=== PATIENT | female | born 1955 | race Caucasian/White ===

== ENCOUNTER 2020-04-12 07:40 | Emergency (ER) | payer MEDICARE, SELFPAY ==
[2020-04-12 07:44] VITALS: BP 194/82; PULSE 75; RESP 16; TEMP 36.6; O2SAT 94; BMI 40.7
--- NOTE | 2020-04-12 08:13 | W.ED.EXTPRO ---
HPI - Extremity Problem General: Chief complaint: Extremity Problem,Nontraumatic Stated complaint: R wrist pain/swelling Time Seen by Provider: 04/12/20 07:58 History of Present Illness: HPI Narrative: 64-year-old female patient presents to the emergency department with onset of right wrist plane that started yesterday. Pain is worsened over the past 24 hours. She denies injury, fall or other trauma. She denies open wounds to the area. 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 She is right-hand dominant. Pain with opening closure of the hand and movement of the wrist. MD Complaint: extremity pain Associated symptoms: Deny chest pain, fever(s) or rash Review of Systems General: Reports: 10 or more systems reviewed and unremarkable except in HPI and below Const: Denies: fever(s), chills or diaphoresis Card: Denies: chest pain, palpitations or irregular heart rhythm Resp: Denies: dyspnea, productive cough, non-productive cough or wheezing Musc: Reports: joint pain (Right wrist) and joint stiffness (Right wrist); Denies: back pain Skin/Breast: Denies: rash or pruritus Neuro: Denies: headache(s), weakness in extremities or behavioral changes PFS ED PFSH: Social History (Updated 04/12/20 @ 07:50 by Isiah Mesa RN) Smoking and tobacco status: never smoked Alcohol intake: never Substance/Drug Use: never Physical Exam Const: COMMON NORMALS: no acute distress, patient oriented x3, healthy appearing and alert GENERAL APPEARANCE: cooperative and well hydrated Neck/C-Spine: COMMON NORMALS: full ROM and no lymphadenopathy GENERAL: Yes normal visual inspection and Yes trachea midline CERVICAL SPINE: Yes cervical ROM normal Chest: COMMONS NORMALS: normal inspection of the chest Resp: COMMON NORMALS: normal respiratory effort and clear to auscultation bilaterally AUSCULTATION: clear to auscultation bilaterally Cardio: COMMON NORMALS: regular rhythm, S1 normal heart sound present and S2 normal heart sound present RHYTHM: regular rhythm HEART SOUNDS: S1 normal heart sound present and S2 normal heart sound present Back/Pelvis: COMMON NORMALS: thoracic and lumbar spine normal to inspection Extremity: COMMON NORMALS: normal to inspection and capillary refill normal NARRATIVE EXTREMITY EXAM: Radial pulse bilateral 2+ GENERAL: Yes normal exam except as noted RIGHT UPPER EXTREMITY: Yes wrist Right wrist: Yes inspection, Yes palpation (Pain to the anterior radial and ulnar side of the wrist, reproduced with palpation), Yes ROM (Limited, positive Phalen positive Tinel sign, n/v exam distally intact) and Yes neurovascular exam OTHER: Flexion extension of the digits to the right upper extremity reproduce pain to the right wrist, movement of the digits appreciated. Hand grasp reproduces pain to the right wrist. Patient did have brace on that was too tight, edema to the dorsal part of the hand noted, swelling resolved when brace was removed. No erythema, increased warmth to the hand or wrist/forearm. Negative swelling of the right wrist/right FA. Rt Elbow and upper arm w/o abnormality Neuro: COMMON NORMALS: patient oriented x3 and no focal motor deficits SENSORIUM/ORIENTATION: Yes alert Psych: COMMON NORMALS: mental status grossly normal, Normal thought process present and cooperative ACTIVITY/MOTOR BEHAVIOR: Yes appropriate eye contact THOUGHT PROCESS: Normal thought process present Skin: COMMON NORMALS: no rashes or lesions noted and turgor normal GENERAL SKIN EXAM: no rashes or lesions noted and turgor normal Course Vital Signs: Vital signs: Vital Signs Temperature 97.9 F 04/12/20 07:44 Pulse Rate 72 04/12/20 08:35 Respiratory Rate 18 04/12/20 08:35 Blood Pressure 194/82 04/12/20 07:44 Pulse Oximetry 96 04/12/20 08:35 MDM - Extremity (Nontraumatic) MDM Narrative: Medical decision making narrative: differential includes tenosynovitis Differential Diagnosis: Extremity Problem Differential Diagnosis: Likely cellulitis, superficial thrombophlebitis and deep venous thrombosis of upper extremity Discharge Plan Discharge Patient Disposition: Home, Self-Care Clinical Impression: Acute carpal tunnel syndrome Qualifiers: Laterality: right Qualified Code(s): G56.01 - Carpal tunnel syndrome, right upper limb Acute wrist pain Qualifiers: Laterality: right Qualified Code(s): M25.531 - Pain in right wrist Condition: Stable Prescriptions: New prednisone 20 mg tablet 20 mg PO BID 5 Days Qty: 10 RF: 0 naproxen 500 mg tablet 500 mg PO Q12H PRN (Reason: pain) Qty: 20 RF: 0 Discharge Orders: Discharge Order (Routine); Ordered 04/12/20 Ordered By: Yessi Qing Pool Discharge Diet: Usual diet Discharge Activity: Limit activity as instructed Patient Instructions: Tendinitis (ED), Wrist Sprain (ED), Sprains - Wrist Activity Restrictions/Additional Instructions: Wear wrist splint at all times until better. Continue to attempt to mobilize fingers, wiggling them frequently. Will need to wear wrist splint at night, follow-up with your primary care provider this week as further diagnostic studies may be needed such as nerve conduction study. Keep the right wrist elevated and immobilized to help reduce pain. If you develop swelling of the right upper extremity, redness, fever or worsening symptoms, return to the emergency department for further evaluation. Discharge Date/Time: 04/12/20 08:37 Coding Level of Care Code ED Professor Of Counseling for Amy Nunn Exam Comprehensive
[2020-04-12] MEDS: HYDROcodone-acetaminophen 5-325 mg Tablet 1 TAB PO (08:15)
--- NOTE | 2020-04-12 08:19 | PC.NURSE ---
new wrist splint applied to patients wrist, patient tolerated well
[2020-04-12 08:35] VITALS: PULSE 72; RESP 18; O2SAT 96
== END 2020-04-12 08:37 | disposition home or self-care (01) ==
PROVIDERS: Emergency Provider Nurse Practitioner Family
DX: G56.01 Carpal tunnel syndrome, right upper limb (principal)
CPT/HCPCS: 12345; 29125; 99281; 99283

== ENCOUNTER 2020-05-11 12:20 | Emergency (ER) | payer MEDICARE, SELFPAY ==
[2020-05-11 12:24] VITALS: BMI 40.2
[2020-05-11 12:27] VITALS: BP 183/62; PULSE 72; RESP 20; TEMP 37.1; O2SAT 95
--- NOTE | 2020-05-11 13:01 | ED_ITS ---
HPI - Fall General: Chief Complaint: Fall Stated Complaint: broken nose/sent by doctor Time Seen by Provider: 05/11/20 12:30 Source: patient Mode of arrival: ambulatory Limitations: no limitations History of Present Illness: HPI Narrative: Patient is a nice 64-year-old female who presents to ED today with a complaint of a possible nasal bone fracture. Patient states she was out feeding her animals when she accidentally tripped and fell landing onto her nose. She was initially seen at an outlying clinic and had nasal bone x-rays performed and told to come to the emergency department for further evaluation. Patient denies LOC. She has not had any headaches, visual changes, nausea or vomiting since the event. She states after she struck her nose she noticed the left nare bleeding but this has subsided. She has no other complaints at this time. MD complaint: fall Onset (ago): hour(s) Fall from: standing Fall witnessed: no Place fall occurred: home Loss of consciousness: None Prolonged down time: no Symptoms prior to fall: none Context: tripped/slipped Location of injury: face (nose) Associated symptoms-after fall: Denies chest pain, headache(s) or neck pain Review of Systems Eyes: Denies: change in vision, blurry vision, blind spots, photophobia, eye discomfort, floaters or seeing flashes ENMT: Denies: odynophagia Card: Denies: chest pain Resp: Denies: dyspnea GI: Denies: nausea or vomiting Musc: Denies: neck pain, back pain, extremity pain or joint pain Neuro: Denies: headache(s), numbness in extremities, weakness in extremities or sensory changes [facility] ED PFSH: Social History (Updated 04/12/20 @ 07:50 by Isiah Mesa RN) Smoking and tobacco status: never smoked Alcohol intake: never Physical Exam Const: COMMON NORMALS: no acute distress, patient oriented x3, no limitations and alert HENMT: COMMON NORMALS: normocephalic, atraumatic and Normal nasal mucous membranes and turbinates present HEAD & SCALP: normocephalic and atraumatic FACE & SINUS: sinuses nontender and other (mild TTP anterior nose; no septal hematoma) NOSE: Normal nares present, Normal nasal mucous membranes and turbinates present, Normal septum present and No nasal discharge present; no Epistaxis present OTHER: no other facial tenderness other than nose Eye: COMMON NORMALS: Equal, round and reactive pupils present and EOMs intact bilaterally GENERAL EYE: appearance normal, both eyes and all related structures PUPIL: Yes Equal, round and reactive pupils present Neck/C-Spine: COMMON NORMALS: full ROM CERVICAL SPINE: Yes cervical ROM normal and No Cervical spine tenderness Neuro: COMMON NORMALS: patient oriented x3 SENSORIUM/ORIENTATION: Yes alert Course Vital Signs: Vital signs: Vital Signs Temperature 98.8 F 05/11/20 12:27 Pulse Rate 72 05/11/20 12:27 Respiratory Rate 20 H 05/11/20 12:27 Blood Pressure 183/62 05/11/20 12:27 Pulse Oximetry 95 05/11/20 12:27 MDM - Fall MDM Narrative: Medical decision making narrative: [facility] I reviewed these films which shows a nondisplaced nasal bone fracture. Patient has no septal hematoma on exam. We will have her follow-up with ENT for further evaluation. Discharge Plan Discharge Prescriptions: No Action naproxen 500 mg tablet 500 mg PO Q12H PRN (Reason: pain) Qty: 20 RF: 0 Coding Level of Care Code ED [employer] for Amy Nunn
[2020-05-11 13:32] VITALS: BP 174/74; PULSE 61; RESP 16; O2SAT 95
--- NOTE | 2020-05-12 08:01 | DCPLANNER ---
security systems manager had message to schedule a follow up appointment for patient with Dr. Iraheta. ENT. security systems manager faxed patients information to the office of Dr. Iraheta, clinic will call patient with appointment information. security systems manager will call for appointment information.
--- NOTE | 2020-05-13 11:41 | DCPLANNER ---
Patricia from Dr. Trivedi office called case supervisor with appointment information. A follow up appointment is scheduled for Tuesday, May 19, 2020 at 1:00. Clinic called patient with appointment information.
--- NOTE | 2020-06-18 07:47 | DCPLANNER ---
Patient had a follow up appointment scheduled for 05.19.[address] Iraheta, ENT - patient did attend the appointment.
== END 2020-05-11 13:33 | disposition home or self-care (01) ==
PROVIDERS: Emergency Provider Physician Assistant; PCP Internal Medicine
DX: S02.2XXA Fracture of nasal bones, initial encounter for closed fracture (principal); W01.0XXA Fall on same level from slipping, tripping and stumbling without subsequent striking against object, initial encounter
CPT/HCPCS: 12345; 99281

== ENCOUNTER 2021-09-11 07:11 | Inpatient (IN) | payer MEDICARE, SELFPAY ==
[2021-09-11] VITALS (14 sets, daily range): BP systolic 169–218; BP diastolic 59–81; PULSE 73–89; RESP 17–28; TEMP 36.5–36.9; O2SAT 79–96; BMI 40.7
--- NOTE | 2021-09-11 07:17 | XRR_ITS ---
PROCEDURE INFORMATION: Exam: XR Chest Exam date and time: 09/11/2021 7:17 AM Age: 65 years old Clinical indication: Dyspnea TECHNIQUE: Imaging protocol: XR of the chest. Views: 1 view. Total images: 1 COMPARISON: No relevant prior studies available. FINDINGS: Lungs: Nonspecific bilateral mid lung and bibasilar opacities, favoring atelectasis and pneumonia. Pleural spaces: Unremarkable. No pleural effusion. No pneumothorax. Heart/Mediastinum: Upper normal heart size. Bones/joints: Spinal degenerative changes are evident. XR/XR chest 1V portable [id number] IMPRESSION: Nonspecific bilateral mid lung and bibasilar opacities, favoring atelectasis and pneumonia.
[2021-09-11 08:26] LABS: SARS Covid-2 Antigen Negative (Negative)
--- NOTE | 2021-09-11 08:35 | W.ED.SOB ---
HPI - SOB/Dyspnea General: Chief Complaint: Shortness of Breath/Dyspnea Stated Complaint: SOB; taken new atibiotics but is worse Time Seen by Provider: 09/11/21 07:16 History of Present Illness: HPI Narrative: 65-year-old female presents emergency room with complaints of shortness of breath. She recently been on a course of antibiotics for strep pharyngitis and then was retreated and started on another course of antibiotics after repeat testing was positive.. She has a history of diabetes mellitus she is on Metformin once daily she also has a history hypertension. She had increasing shortness of breath dyspnea and nonproductive cough. Earlier this week patient was screened for Covid with rapid antigen test which was negative it does not sound like a PCR was done. She believes she had COVID 1 year ago but is not entirely sure if she was tested. She denies any history of chronic respiratory illnesses. MD elicited complaint: shortness of breath and cough Onset (ago): day(s) Context: recent illness Timing: constant Severity: mild Exacerbating factors: exertion and coughing Relieving factors: rest Associated symptoms: Reports cough; Deny abdominal pain, chest congestion, chest pain, diaphoresis, dizziness, extremity pain, fever(s), hemoptysis, lightheadedness, myalgias, nausea, orthopnea, palpitations, paresthesias, polydipsia, polyuria, rash, sense of impending doom, syncope or vomiting Treatment prior to arrival: none Review of Systems Const: Denies: fever(s) or diaphoresis ENMT: Denies: throat pain, ear or mastoid pain, nasal discharge or nasal congestion Card: Denies: chest pain, palpitations, lightheadedness, syncope or orthopnea Resp: Denies: hemoptysis or chest congestion GI: Denies: abdominal pain, nausea or vomiting : Denies: flank pain, difficulty voiding, dysuria, urinary frequency or urinary urgency Musc: Denies: extremity pain Skin/Breast: Denies: rash or pruritus Neuro: Denies: dizziness Endo: Denies: polyuria or polydipsia PFSH ED PFSH: Medical History History of hypertension Surgical History No pertinent past surgical history Family History Other Diabetes Social History Smoking and tobacco status: never smoked Alcohol intake: never Physical Exam Const: GENERAL APPEARANCE: cooperative and comfortable ORIENTATION/CONSCIOUSNESS: Yes awake HENMT: COMMON NORMALS: normocephalic, atraumatic, hearing grossly normal bilaterally, external ears normal, EAC's normal, TM's normal bilaterally, Normal nasal mucous membranes and turbinates present, moist oral mucous membranes and oropharynx normal HEAD & SCALP: normocephalic and atraumatic NOSE: Normal nasal mucous membranes and turbinates present EXTERNAL EAR: Yes external ears normal EXTERNAL AUDITORY CANAL: EAC's normal TYMPANIC MEMBRANE: TM's normal bilaterally Eye: COMMON NORMALS: Equal, round and reactive pupils present, EOMs intact bilaterally, conjunctivae normal and no scleral icterus CONJUNCTIVA: Yes conjunctivae normal PUPIL: Yes Equal, round and reactive pupils present Neck/C-Spine: COMMON NORMALS: full ROM, no lymphadenopathy, supple and no JVD Lymph: LYMPHATIC: no lymphadenopathy noted and no lymphedema noted Resp: AUSCULTATION: rales and wheezes Cardio: COMMON NORMALS: no JVD, regular rate, regular rhythm and No murmurs present (Cardio) RATE: regular rate RHYTHM: regular rhythm GI: COMMON NORMALS: Soft to palpation and No hepatosplenomegaly present AUSCULTATION: Yes normoactive bowel sounds PALPATION: Yes Soft to palpation, No Tenderness to palpation present (GI), No Guarding due to palpation present (GI) and Yes No hepatosplenomegaly present Extremity: COMMON NORMALS: normal to inspection, capillary refill normal, no clubbing, cyanosis or edema, no calf tenderness and no pedal edema Skin: COMMON NORMALS: no rashes or lesions noted GENERAL SKIN EXAM: no rashes or lesions noted Course Vital Signs: Vital signs: Vital Signs Temperature 97.5 F L 09/14/21 03:26 Pulse Rate 51 L 09/14/21 03:26 Respiratory Rate 16 09/14/21 03:26 Blood Pressure 161/69 09/14/21 05:28 Pulse Oximetry 98 09/14/21 03:26 MDM - SOB/Dyspnea MDM Narrative: Medical decision making narrative: Patient initially presents with O2 sats in 9% on room air. She did improve with oxygen supplementation. Concerned about possible COVID we are retesting started on broad-spectrum antibiotics and she has been on several antibiotics lately. Discussed with hospitalist orders written. Lab Data: Labs: Lab Results 09/11/21 09/11/21 09/11/21 07:50 07:50 07:50 WBC 8.5 10^3/uL 10^3/ uL (4.0-10.0) RBC 4.82 10^6/uL 10^6 /uL (4.1-5.3) Hgb 13.4 g/dL g/dL (11.5-15.3) Hct 41.9 % % (37.0-47.0) MCV 86.9 fl fl (81-99) MCH 27.8 pg L pg (28.0-34.0) MCHC 32.0 g/dL g/dL (30.0-36.0) RDW 14.2 % % (12.1-15.1) Plt Count 270 10^3/cmm 10^3 /cmm (130-400) MPV 9.8 fL fL (7.4-10.4) Neut % (Auto) 80.6 % % Lymph % (Auto) 12.1 % % [place] % (Auto) 5.4 % % Eos % (Auto) 1.1 % % Baso % (Auto) 0.2 % % Neut # (Auto) 6.82 10^3/uL 10^3 /uL (1.8-7.7) Lymph # (Auto) 1.0 10^3/uL 10^3/ uL (0.8-4.8) [place] # (Auto) 0.5 10^3/uL 10^3/ uL (0.2-0.9) Eos # (Auto) 0.1 10^3/uL 10^3/ uL (0.0-0.8) Baso # (Auto) 0.0 10^3/uL 10^3/ uL (0.0-0.1) Nucleated RBC % (a uto) 0 % % Nucleated RBCs # 0.0 /100WBC /100W BC Sodium Potassium Chloride Carbon Dioxide Anion Gap BUN Creatinine GFR Calculation Glucose Estimat Average Gl ucose Hemoglobin A1c Calculated Osmolal ity Lactic Acid Calcium Total Bilirubin AST ALT Alkaline Phosphata se C-Reactive Protein NT-Pro-B Natriuret Pep Total Protein Albumin Globulin Procalcitonin TSH SARS-CoV-2 RNA (RT -PCR) Not detected (NOT DETECTED) SARS-CoV-2 Ag (Rap id) Negative (Negative) 09/11/21 09/11/21 09/11/21 07:50 07:50 07:50 WBC RBC Hgb Hct MCV MCH MCHC RDW Plt Count MPV Neut % (Auto) Lymph % (Auto) [place] % (Auto) Eos % (Auto) Baso % (Auto) Neut # (Auto) Lymph # (Auto) [place] # (Auto) Eos # (Auto) Baso # (Auto) Nucleated RBC % (a uto) Nucleated RBCs # Sodium 136 mmol/L mmol/L (136-145) Potassium 4.1 mmol/L mmol/L (3.5-5.1) Chloride 96 mmol/L L mmol/ L (98-107) Carbon Dioxide 26 mmol/L mmol/L (22-29) Anion Gap 18.1 (5-19) BUN 10 mg/dL mg/dL (8-23) Creatinine 0.4 mg/dL L mg/dL (0.5-0.9) GFR Calculation 159.7 mL/min H mL /min (90-130) Glucose 174 mg/dL H mg/dL (65-115) Estimat Average Gl ucose Hemoglobin A1c Calculated Osmolal ity 285 mOsm/kg mOsm/ kg (285-295) Lactic Acid 1.0 mmol/L mmol/L (0.5-2.2) Calcium 8.5 mg/dL mg/dL (8.5-10.5) Total Bilirubin 0.3 mg/dL mg/dL (0.15-1.2) AST 41 U/L H U/L (0-32) ALT 44 U/L H U/L (0-33) Alkaline Phosphata se 87 IU/L IU/L (35-105) C-Reactive Protein 116.8 mg/L H mg/L (0.0-4.9) NT-Pro-B Natriuret Pep 55 pg/mL pg/mL (0-125) Total Protein 7.1 g/dL g/dL (6.6-8.7) Albumin 4.2 g/dL g/dL (3.5-5.2) Globulin 2.9 g/dL g/dL (1.3-4.6) Procalcitonin 0.11 ng/mL ng/mL (0-0.5) TSH 0.63 uIU/mL uIU/m L (0.27-4.20) SARS-CoV-2 RNA (RT -PCR) SARS-CoV-2 Ag (Rap id) 09/11/21 07:50 WBC RBC Hgb Hct MCV MCH MCHC RDW Plt Count MPV Neut % (Auto) Lymph % (Auto) [place] % (Auto) Eos % (Auto) Baso % (Auto) Neut # (Auto) Lymph # (Auto) [place] # (Auto) Eos # (Auto) Baso # (Auto) Nucleated RBC % (a uto) Nucleated RBCs # Sodium Potassium Chloride Carbon Dioxide Anion Gap BUN Creatinine GFR Calculation Glucose Estimat Average Gl ucose 186 Hemoglobin A1c 8.1 % H % (4.0-6.0) Calculated Osmolal ity Lactic Acid Calcium Total Bilirubin AST ALT Alkaline Phosphata se C-Reactive Protein NT-Pro-B Natriuret Pep Total Protein Albumin Globulin Procalcitonin TSH SARS-CoV-2 RNA (RT -PCR) SARS-CoV-2 Ag (Rap id) Discharge Plan Discharge Patient Disposition: Admitted As Inpatient Admit Provider: Andrea Edwards Clinical Impression: Pneumonia, Hypoxia Condition: Stable Coding Level of Care Code ED Senior Principal for Amy Nunn
--- NOTE | 2021-09-11 08:46 | ECG_ITS ---
[facility] Test Date: 2021-09-11 Pat Name: Staci Sheikh Department: Room: Gender: Female Senior Mechanical Project Engineer: : 1955 Requested By: Orlin Piña Order Number: [id number] Reading MD: SAMMY SAMANIEGO Measurements Intervals [place] Rate: 80 P: -75 WV: 142 QRS: -3 QRSD: 93 T: 95 QT: 381 QTc: 440 Interpretive Statements SINUS RHYTHM LOW QRS VOLTAGE IN PRECORDIAL LEADS [QRS DEFLECTION < 1.0 mV IN CHEST LEADS] SEPTAL MYOCARDIAL INFARCTION , PROBABLY OLD [40+ ms Q WAVE IN V1/V2] No previous ECG available for comparison Electronically Signed On 09-12-2021 19:59:07 CLAM SORTER by SAMMY SAMANIEGO [id number]
[2021-09-11 08:56] LABS: Basophils % 0.2 %; Eosinophils # 0.1 10^3/uL (0.0-0.8); Eosinophils % 1.1 %; Hematocrit 41.9 % (37.0-47.0); Hemoglobin 13.4 g/dL (11.5-15.3); Lymphocytes % 12.1 %; Mean Corpuscular Hemoglobin 27.8 pg (28.0-34.0); Mean Corpuscular Volume 86.9 fl (81-99); Mean Platelet Volume 9.8 fL (7.4-10.4); Monocytes # 0.5 10^3/uL (0.2-0.9); Monocytes % 5.4 %; Neutrophils # 6.82 10^3/uL (1.8-7.7); Neutrophils % 80.6 %; Nucleated Red Blood Cells % 0 %; Platelet Count 270 10^3/cmm (130-400); Red Blood Count 4.82 10^6/uL (4.1-5.3); Red Cell Distribution Width 14.2 % (12.1-15.1); White Blood Count 8.5 10^3/uL (4.0-10.0)
[2021-09-11 09:11] LABS: Alanine Aminotransferase 44 U/L (0-33); Albumin Level 4.2 g/dL (3.5-5.2); Alkaline Phosphatase 87 IU/L (35-105); Anion Gap 18.1 (5-19); Aspartate Amino Transferase 41 U/L (0-32); Blood Urea Nitrogen 10 mg/dL (8-23); Calcium 8.5 mg/dL (8.5-10.5); Carbon Dioxide 26 mmol/L (22-29); Chloride 96 mmol/L (98-107); Globulin 2.9 g/dL (1.3-4.6); Glomerular Filtration Rate 159.7 mL/min (90-130); Glucose 174 mg/dL (65-115); Osmolality Calculated 285 mOsm/kg (285-295); Potassium 4.1 mmol/L (3.5-5.1); Sodium 136 mmol/L (136-145); Total Bilirubin 0.3 mg/dL (0.15-1.2); Total Protein 7.1 g/dL (6.6-8.7)
[2021-09-11 09:18] LABS: Creatinine Clr Calc Pharmacy 91.8751
[2021-09-11] MEDS: piperacillin-tazobactam 3.375 GM in sodium chloride 0.9% (plus) 50 ML IV (09:21)
[2021-09-11] MEDS: levofloxacin-dextrose 5 % 750 MG/150 ML PREMIX 100 MG IV (10:13)
[2021-09-11] MEDS: vancomycin 1,000 MG in sodium chloride 0.9% 250 ML 250 MG IV (12:37)
--- NOTE | 2021-09-11 13:12 | CTR_ITS ---
PROCEDURE INFORMATION: Exam: CTA Chest With Contrast Exam date and time: 09/11/2021 1:12 PM Age: 65 years old Clinical indication: Shortness of breath; Additional info: SOB TECHNIQUE: Imaging protocol: Computed tomographic angiography of the chest with contrast. 3D rendering (Not supervised by radiologist): MIP and/or 3D reconstructed images were created by the technologist. Radiation optimization: All CT scans at this facility use at least one of these dose optimization techniques: automated exposure control; mA and/or kV adjustment per patient size (includes targeted exams where dose is matched to clinical indication); or iterative reconstruction. Contrast material: OMNI 350; Contrast volume: 69 ml; Contrast route: INTRAVENOUS (IV); COMPARISON: CR (CHEST, ) 09/11/2021 7:51 AM RADIATION DOSE METRICS: Total DLP (mGy-cm): 614.52 FINDINGS: Pulmonary arteries: Normal. No pulmonary emboli. Aorta: Unremarkable. No aortic aneurysm. No aortic dissection. Lungs: Patchy bilateral airspace infiltrates. Pleural spaces: Unremarkable. No pneumothorax. No pleural effusion. Heart: Coronary artery atherosclerotic calcifications. Lymph nodes: Prominent mediastinal lymph nodes measuring up to 16 mm, nonspecific. Liver: Hepatic steatosis. Gallbladder and bile ducts: Cholecystectomy. Bones/joints: Unremarkable. No acute fracture. Soft tissues: Unremarkable. CT/CT angio chest PE protcl [id number] IMPRESSION: 1. Negative for pulmonary embolus. 2. Prominent mediastinal lymph nodes measuring up to 16 mm, nonspecific. 3. Coronary artery atherosclerotic calcifications. 4. Hepatic steatosis. 5. Cholecystectomy. 6. Patchy bilateral airspace infiltrates.
--- NOTE | 2021-09-11 13:13 | ECG_ITS ---
[facility] Test Date: 2021-09-11 Pat Name: Staci Sheikh Department: Room: 270 Gender: Female Flat Cutter: : 1955 Requested By: Andrea Edwards Order Number: [id number] Reading MD: SAMMY SAMANIEGO Measurements Intervals [place] Rate: 76 P: 60 DC: 132 QRS: 17 QRSD: 85 T: 87 QT: 380 QTc: 430 Interpretive Statements SINUS RHYTHM LOW QRS VOLTAGE IN PRECORDIAL LEADS [QRS DEFLECTION < 1.0 mV IN CHEST LEADS] POSSIBLE ANTERIOR MYOCARDIAL INFARCTION , OF INDETERMINATE AGE [30 ms Q WAVE IN V3/V4, OR R < 0.2 mV IN V4] Compared to ECG 09/11/2021 14:44:35 Low QRS voltage now present Short DC interval no longer present Myocardial infarct finding still present Electronically Signed On 09-12-2021 19:58:52 GOLF COURSE RANGER by SAMMY SAMANIEGO [id number]
--- NOTE | 2021-09-11 13:21 | P.HP_ITS ---
Providers/Chief Complaint Primary Care Provider: Elle Robert Chief Complaint: SOB; taken new atibiotics but is worse History of Present Illness Staci Sheikh is a 65 year old female with a past medical history of hypertension, prediabetes, who presents [facility] due to cough, shortness of breath, fatigue, malaise, for the last week. Patient tells me that she was seen by her primary care provider roughly a week ago, for cough, shortness of breath, fatigue, malaise she tested positive for strep and was given antibiotics. She denies any sore throat, no difficulty swallowing, no neck pain. She then continues to have symptomatology of cough, shortness of breath, so she again was tested, tested negative for Covid, tested positive for strep throat, was put on azithromycin. She continued to have symptomatology, so she came to [facility] for further evaluation. No hemoptysis, no calf pain. No calf swelling. No history of COVID-19 exposure. Did have Covid roughly a year ago. No history of vaccination. No history of influenza vaccination. She thinks she had the the pneumonia vaccine. Review of Systems Const: Reports: fatigue and malaise; Denies: fever(s) or chills Eyes: Denies: change in vision or blurry vision ENMT: Denies: throat pain, odynophagia, hoarseness or nasal congestion Card: Reports: dyspnea on exertion; Denies: chest pain, palpitations, syncope, pre-syncope or orthopnea Resp: Reports: dyspnea and non-productive cough; Denies: productive cough or wheezing GI: Denies: abdominal pain, nausea, vomiting, hematemesis, diarrhea, cons tipation, hematochezia or melena : Denies: flank pain, dysuria or urinary frequency Musc: Denies: neck pain or back pain Skin/Breast: Denies: rash Neuro: Denies: headache(s), dizziness or vertigo Endo: Denies: polyuria or polydipsia Medications/Allergies Home Medications Medication Instructions Recorded Confirmed Last Taken Type Beet Pills 1 tab PO DAILY 05/11/20 09/11/21 09/10/21 History amlodipine 10 mg PO DAILY 05/11/20 09/11/21 09/10/21 History citalopram 40 mg PO DAILY 05/11/20 09/11/21 09/10/21 History lactobacillus comb no.10 20,000 mmu cells PO DAILY 05/11/20 09/11/21 09/10/21 History [Probiotic] losartan-hydrochlorothiazide 1 tab PO DAILY 05/11/20 09/11/21 09/10/21 History aspirin 81 mg PO DAILY 09/11/21 09/11/21 09/10/21 History azithromycin See Rx Instructions .ROUTE .COMPLEX 09/11/21 09/11/21 09/10/21 History levofloxacin 500 mg PO DAILY 09/11/21 09/11/21 09/10/21 History Allergies Allergy/AdvReac Type Severity Reaction Status Date / Time diphenhydramine Allergy ADR-Agitate Verified 05/11/20 13:32 [From Benadryl] d beta blockers Allergy Unknown ALGY-Anaphy Uncoded 05/11/20 13:32 laxis PFSH Acute PFSH: Medical History (Updated 09/11/21 @ 13:26 by Andrea Edwards MD) History of hypertension Surgical History (Updated 09/11/21 @ 13:25 by Andrea Edwards MD) No pertinent past surgical history Family History (Updated 09/11/21 @ 13:25 by Andrea Edwards MD) Other Diabetes Social History (Updated 04/12/20 @ 07:50 by Isiah Mesa RN) Smoking and tobacco status: never smoked Alcohol intake: never Vitals/I&O/Wt Last Vital Signs Temp 97.8 F 09/11/21 07:32 Pulse 80 09/11/21 12:49 Resp 28 H 09/11/21 12:49 BP 174/74 09/11/21 12:49 Pulse Ox 94 09/11/21 12:49 09/10/21 09/11/21 09/11/21 22:59 06:59 14:59 Intake Total 200 / 200 Balance 200 / 200 Weight last 48 hrs Weight 117.934 kg Physical Exam Const: COMMON NORMALS: no acute distress and patient oriented x3 HENMT: COMMON NORMALS: normocephalic HEAD & SCALP: normocephalic Eye: COMMON NORMALS: Equal, round and reactive pupils present and EOMs intact bilaterally GENERAL EYE: appearance normal, both eyes and all related structures PUPIL: Yes Equal, round and reactive pupils present Neck/C-Spine: COMMON NORMALS: full ROM and no lymphadenopathy THYROID: Thyr oid normal Lymph: LYMPHATIC: no lymphadenopathy noted Resp: COMMON NORMALS: normal respiratory effort AUSCULTATION: wheezes scattered wheezes Cardio: COMMON NORMALS: no JVD, regular rate, regular rhythm, S1 normal heart sound present, S2 normal heart sound present, No gallops present (Cardio), No clicks present (Cardio) and No murmurs present (Cardio) RATE: regular rate RHYTHM: regular rhythm HEART SOUNDS: S1 normal heart sound present and S2 normal heart sound present GI: COMMON NORMALS: Normal to inspection, nondistended, normoactive bowel sounds present, Soft to palpation, non-tender and No hepatosplenomegaly present PALPATION: Yes Soft to palpation and Yes No hepatosplenomegaly present Extremity: COMMON NORMALS: normal to inspection, full ROM and no pedal edema Neuro: COMMON NORMALS: patient oriented x3, CN's II-XII intact bilaterally, moves all extremities and no focal motor deficits Psych: COMMON NORMALS: mental status grossly normal, Normal thought process present and cooperative THOUGHT PROCESS: Normal thought process present Data : 09/11/21 07:50 09/11/21 07:50 Micro: Microbiology 09/11/21 09:00 Blood Culture - Preliminary Blood SPECIMEN COLLECTED 09/11/21 08:45 Blood Culture - Preliminary Blood SPECIMEN COLLECTED A&P Assessment and plan (1) No pertinent past surgical history: Status: Acute (2) Pneumonia: Pneumonia -With hypoxia -Pro-Levi, CRP pending -Blood cultures, sputum cultures, urine bacterial antigens -BNP, troponin series -Continue Covid isolation, Covid PUI, Covid PCR pending -Continue vancomycin, cefepime, azithromycin -DuoNeb, budesonide -Vitamin C, vitamin D, zinc Hypertension, clonidine, Norvasc - Status: Acute (3) Hypoxia: Status: Acute Attestations Medical Necessity Statement*: Patient requires hospitalization, for pneumonia, Covid PUI, hypoxia, inpatient, greater than 2 midnights Coding Level of Care Code Acute Ends Down Checker for [facility] Fwd Diagnoses No pertinent past surgical history Z78.9 Pneumonia J18.9 Hypoxia R09.02
[2021-09-11 13:26] LABS: D Dimer 0.58 ug/mIFEU (0-0.59)
[2021-09-11] MEDS: amlodipine 10 mg Tablet PO (14:04)
[2021-09-11] MEDS: enoxaparin 40 mg/0.4 mL Syringe SUBCUT (14:05)
[2021-09-11 14:11] LABS: Estmated Average Glucose 186; Hemoglobin A1C 8.1 % (4.0-6.0)
[2021-09-11 14:19] LABS: NT Pro B Type Natriuretic Pept 55 pg/mL (0-125); Procalcitonin 0.11 ng/mL (0-0.5); Thyroid Stimulating Hormone 0.63 uIU/mL (0.27-4.20)
[2021-09-11 14:30] LABS: C Reactive Protein 116.8 mg/L (0.0-4.9)
--- NOTE | 2021-09-11 15:13 | ECG_ITS ---
[facility] Test Date: 2021-09-11 Pat Name: Staci Sheikh Department: Room: 270 Gender: Female Dba Developer: : 1955 Requested By: Andrea Edwards Order Number: [id number] Reading MD: SAMMY SAMANIEGO Measurements Intervals [place] Rate: 76 P: 55 HI: 115 QRS: 60 QRSD: 94 T: 92 QT: 375 QTc: 423 Interpretive Statements SINUS RHYTHM WITH SHORT HI INTERVAL SEPTAL MYOCARDIAL INFARCTION , OF INDETERMINATE AGE [40+ ms Q WAVE IN V1/V2] Compared to ECG 09/11/2021 08:58:29 Short HI interval now present Myocardial infarct finding still present Electronically Signed On 09-12-2021 19:59:51 DATA WAREHOUSE ANALYST by SAMMY SAMANIEGO [id number]
[2021-09-11 15:22] LABS: Troponin(5th) Baseline 8 ng/L (0-10)
[2021-09-11] MEDS: ipratropium-albuterol 3 mL Neb INHALATION ×3 (15:55→23:41)
[2021-09-11] MEDS: iohexol 350 mg/mL 100 mL Btl IV (16:33)
[2021-09-11 17:54] LABS: Influenza A by IFA Negative (Negative); Influenza B by IFA Negative (Negative)
[2021-09-11] MEDS: docusate sodium 100 mg Capsule PO (17:55)
[2021-09-11] MEDS: cefepime 2,000 MG in sodium chloride 0.9% (plus) 50 ML 100 MG IV (17:56)
[2021-09-11 18:01] LABS: Troponin 5 2HR 8.35 ng/L (0-10); Troponin 5 2HR Delta 0.35 ABS# (0-10)
[2021-09-11] MEDS: cloNIDine 0.1 mg Tablet PO (18:25)
--- NOTE | 2021-09-11 19:13 | ECG_ITS ---
[facility] Test Date: 2021-09-11 Pat Name: Staci Sheikh Department: Room: 270 Gender: Female Meeting Specialist: : 1955 Requested By: Andrea Edwards Order Number: [id number] Reading MD: SAMMY SAMANIEGO Measurements Intervals [place] Rate: 71 P: -89 MS: 146 QRS: 24 QRSD: 89 T: 104 QT: 404 QTc: 441 Interpretive Statements SINUS RHYTHM NONSPECIFIC T-WAVE ABNORMALITY Compared to ECG 09/11/2021 17:13:37 T-wave abnormality now present Myocardial infarct finding no longer present Electronically Signed On 09-12-2021 19:59:37 ASSOCIATE CHIEF NURSE by SAMMY SAMANIEGO [id number]
--- NOTE | 2021-09-11 19:15 | PC.NURSE ---
Report to Kevin OBRIEN at this time.
[2021-09-11 20:18] LABS: Troponin 5 6HR 7.25 ng/L (0-10)
[2021-09-11 20:20] LABS: Troponin 5 6HR Delta -0.75 ng/L (0-12)
[2021-09-11] MEDS: vancomycin 1,250 MG/250 ML PIGGYBACK 200 MG IV (21:59)
[2021-09-12] VITALS (14 sets, daily range): BP systolic 126–165; BP diastolic 64–77; PULSE 58–90; RESP 16–18; TEMP 36.4–37.6; O2SAT 92–98
[2021-09-12 03:06] LABS: Basophils % 0.4 %; Eosinophils % 0.3 %; Hemoglobin 12.9 g/dL (11.5-15.3); Lymphocytes # 1.4 10^3/uL (0.8-4.8); Mean Corpuscular HGB Conc 31.5 g/dL (30.0-36.0); Mean Corpuscular Hemoglobin 27.4 pg (28.0-34.0); Mean Platelet Volume 9.6 fL (7.4-10.4); Monocytes # 0.6 10^3/uL (0.2-0.9); Monocytes % 7.8 %; Neutrophils # 5.39 10^3/uL (1.8-7.7); Neutrophils % 72.2 %; Nucleated Red Blood Cells % 0 %; Platelet Count 280 10^3/cmm (130-400); Red Blood Count 4.71 10^6/uL (4.1-5.3); White Blood Count 7.5 10^3/uL (4.0-10.0)
[2021-09-12 03:33] LABS: Alanine Aminotransferase 44 U/L (0-33); Alkaline Phosphatase 91 IU/L (35-105); Anion Gap 17.5 (5-19); Aspartate Amino Transferase 41 U/L (0-32); Blood Urea Nitrogen 12 mg/dL (8-23); Calcium 8.5 mg/dL (8.5-10.5); Carbon Dioxide 27 mmol/L (22-29); Chloride 98 mmol/L (98-107); Creatinine Clr Calc Pharmacy 91.8751; Globulin 3.4 g/dL (1.3-4.6); Glomerular Filtration Rate 123.4 mL/min (90-130); Glucose 175 mg/dL (65-115); Osmolality Calculated 292 mOsm/kg (285-295); Potassium 3.5 mmol/L (3.5-5.1); Sodium 139 mmol/L (136-145); Total Bilirubin 0.3 mg/dL (0.15-1.2); Total Protein 7.4 g/dL (6.6-8.7)
[2021-09-12 03:34] LABS: Magnesium 1.8 mg/dL (1.7-2.3); Phosphorus 3.8 mg/dL (2.5-4.5)
[2021-09-12] MEDS: cefepime 2,000 MG in sodium chloride 0.9% (plus) 50 ML 100 MG IV ×2 (06:29→16:48)
[2021-09-12] MEDS: cloNIDine 0.1 mg Tablet PO ×2 (06:29→16:49)
[2021-09-12] MEDS: ipratropium-albuterol 3 mL Neb INHALATION ×3 (07:25→20:00)
[2021-09-12] MEDS: budesonide 0.5 mg/2 mL Neb INHALATION (07:25)
[2021-09-12] MEDS: azithromycin 500 MG in sodium chloride 0.9% 250 ML 250 MG IV (08:06)
[2021-09-12] MEDS: citalopram 20 mg Tablet 40 MG PO (08:07)
[2021-09-12] MEDS: losartan 50 mg Tablet 100 MG PO (08:07)
[2021-09-12] MEDS: aspirin 81 mg Chew Tablet PO (08:07)
[2021-09-12] MEDS: amlodipine 10 mg Tablet PO (08:07)
[2021-09-12] MEDS: pantoprazole DR 40 mg Tablet PO (08:07)
[2021-09-12] MEDS: docusate sodium 100 mg Capsule PO (08:07)
[2021-09-12] MEDS: hydroCHLOROthiazide 25 mg Tablet PO (08:07)
[2021-09-12] MEDS: folic acid 1 mg Tablet PO (08:07)
[2021-09-12] MEDS: zinc gluconate 50 mg Tablet PO (08:07)
[2021-09-12] MEDS: cholecalciferol (vitamin D3) 1,000 unit Tablet 1000 UNIT PO (08:07)
[2021-09-12] MEDS: vancomycin 1,250 MG/250 ML PIGGYBACK 200 MG IV ×2 (09:08→21:24)
[2021-09-12] MEDS: dexamethasone 10 mg/mL INJ 6 MG IVP (10:46)
--- NOTE | 2021-09-12 14:48 | PM.PN ---
Subjective Subjective: Interval history: Patient was seen this morning, currently in cellulitis, tells that she is feeling better, continues to have wheezing, expiratory, no nausea, no vomiting,no chest pain Vitals/I&O/Wt Last Vital Signs Temp 97.5 F L 09/12/21 07:23 Pulse 85 09/12/21 12:08 Resp 18 09/12/21 12:08 BP 158/77 09/12/21 08:07 Pulse Ox 94 09/12/21 12:08 09/11/21 09/12/21 09/12/21 22:59 06:59 14:59 Intake Total 170 / 620 250 / 870 780 / 780 Output Total 300 / 300 400 / 700 Balance -130 / 320 -150 / 170 780 / 780 Weight last 48 hrs Weight 117.934 kg Weight 117.934 kg Physical Exam Const: COMMON NORMALS: no acute distress and patient oriented x3 Resp: COMMON NORMALS: normal respiratory effort, No retractions and No use of accessory muscles AUSCULTATION: wheezes Cardio: COMMON NORMALS: regular rate, regular rhythm, S1 normal heart sound present and S2 normal heart sound present RATE: regular rate RHYTHM: regular rhythm HEART SOUNDS: S1 normal heart sound present and S2 normal heart sound present Extremity: COMMON NORMALS: no pedal edema Neuro: COMMON NORMALS: patient oriented x3 Psych: COMMON NORMALS: mental status grossly normal Data : 09/12/21 02:16 09/12/21 02:16 Micro: Microbiology 09/11/21 09:00 Blood Culture - Preliminary Blood NEGATIVE TO DATE 09/11/21 08:45 Blood Culture - Preliminary Blood NEGATIVE TO DATE 09/11/21 20:30 Bacterial Antigens - Final Urine,Clean Catch A&P Assessment and plan (1) Pneumonia: Pneumonia -With hypoxia -Covid PUI -Blood cultures, sputum cultures, urine bacterial antigens -BNP 55, no significant delta troponin, EKG normal sinus rhythm -Continue Covid isolation, Covid PUI, Covid PCR pending -Continue vancomycin, cefepime, azithromycin -Decadron 6 mg IV push once daily -DuoNeb, budesonide -Vitamin C, vitamin D, zinc Hypertension, clonidine, Norvasc - Status: Acute (2) Hypoxia: Status: Acute Attestations Medical Necessity Statement*: Patient requires hospitalization for pneumonia, Covid PUI, hypoxia Coding Level of Care Code Acute Oracle Database Consultant for g Fwd Diagnoses Pneumonia J18.9 Hypoxia R09.02
[2021-09-12] MEDS: enoxaparin 40 mg/0.4 mL Syringe SUBCUT (15:01)
[2021-09-12 17:02] LABS: Quest SARS-CoV-2 RNA NOT DETECTED (NOT DETECTED)
--- NOTE | 2021-09-12 19:03 | PC.NURSE ---
Report to Nilam ALFRED at this time.
[2021-09-13] VITALS (17 sets, daily range): BP systolic 151–184; BP diastolic 61–75; PULSE 52–75; RESP 16–18; TEMP 36.3–36.9; O2SAT 91–99
[2021-09-13 03:22] LABS: Basophils % 0.3 %; Hematocrit 39.3 % (37.0-47.0); Hemoglobin 12.7 g/dL (11.5-15.3); Lymphocytes # 1.8 10^3/uL (0.8-4.8); Lymphocytes % 26.8 %; Mean Corpuscular HGB Conc 32.3 g/dL (30.0-36.0); Mean Corpuscular Hemoglobin 27.5 pg (28.0-34.0); Mean Corpuscular Volume 85.2 fl (81-99); Mean Platelet Volume 9.7 fL (7.4-10.4); Monocytes # 0.5 10^3/uL (0.2-0.9); Neutrophils # 4.43 10^3/uL (1.8-7.7); Neutrophils % 65.5 %; Nucleated Red Blood Cells % 0 %; Platelet Count 305 10^3/cmm (130-400); Red Blood Count 4.61 10^6/uL (4.1-5.3); Red Cell Distribution Width 13.6 % (12.1-15.1); White Blood Count 6.8 10^3/uL (4.0-10.0)
[2021-09-13 03:36] LABS: Magnesium 1.8 mg/dL (1.7-2.3); Phosphorus 3.4 mg/dL (2.5-4.5)
[2021-09-13 04:11] LABS: Slide Review Slide Review Perform
[2021-09-13 04:38] LABS: Alanine Aminotransferase 58 U/L (0-33); Albumin Level 3.8 g/dL (3.5-5.2); Alkaline Phosphatase 89 IU/L (35-105); Anion Gap 20.1 (5-19); Aspartate Amino Transferase 58 U/L (0-32); Blood Urea Nitrogen 19 mg/dL (8-23); Calcium 8.8 mg/dL (8.5-10.5); Carbon Dioxide 23 mmol/L (22-29); Chloride 97 mmol/L (98-107); Creatinine Clr Calc Pharmacy 91.8751; Globulin 3.3 g/dL (1.3-4.6); Glucose 214 mg/dL (65-115); Osmolality Calculated 291 mOsm/kg (285-295); Potassium 4.1 mmol/L (3.5-5.1); Sodium 136 mmol/L (136-145); Total Bilirubin 0.3 mg/dL (0.15-1.2); Total Protein 7.1 g/dL (6.6-8.7)
[2021-09-13] MEDS: cloNIDine 0.1 mg Tablet PO ×2 (06:11→16:50)
[2021-09-13] MEDS: cefepime 2,000 MG in sodium chloride 0.9% (plus) 50 ML 100 MG IV ×2 (06:12→16:51)
[2021-09-13] MEDS: ipratropium-albuterol 3 mL Neb INHALATION ×4 (07:41→20:28)
[2021-09-13] MEDS: budesonide 0.5 mg/2 mL Neb INHALATION (07:41)
--- NOTE | 2021-09-13 08:00 | PC.NURSE ---
Discussed competing another COVIID send out test with patient at this time. Patient states, I see no need in it. I don't want to do another one and my kids don't think I should either.
[2021-09-13] MEDS: azithromycin 500 MG in sodium chloride 0.9% 250 ML 250 MG IV (08:01)
[2021-09-13] MEDS: zinc gluconate 50 mg Tablet PO (08:03)
[2021-09-13] MEDS: aspirin 81 mg Chew Tablet PO (08:03)
[2021-09-13] MEDS: docusate sodium 100 mg Capsule PO ×2 (08:03→16:49)
[2021-09-13] MEDS: pantoprazole DR 40 mg Tablet PO (08:04)
[2021-09-13] MEDS: losartan 50 mg Tablet 100 MG PO (08:04)
[2021-09-13] MEDS: cholecalciferol (vitamin D3) 1,000 unit Tablet 1000 UNIT PO (08:04)
[2021-09-13] MEDS: citalopram 20 mg Tablet 40 MG PO (08:04)
[2021-09-13] MEDS: amlodipine 10 mg Tablet PO (08:04)
[2021-09-13] MEDS: folic acid 1 mg Tablet PO (08:04)
[2021-09-13] MEDS: hydroCHLOROthiazide 25 mg Tablet PO (08:04)
[2021-09-13 09:23] LABS: Vancomycin Trough 9.3 ug/mL (10-15)
[2021-09-13] MEDS: vancomycin 1,250 MG/250 ML PIGGYBACK 200 MG IV (09:39)
[2021-09-13] MEDS: dexamethasone 10 mg/mL INJ 6 MG IVP (11:53)
[2021-09-13] MEDS: enoxaparin 40 mg/0.4 mL Syringe SUBCUT (16:49)
--- NOTE | 2021-09-13 18:49 | P.PN_ITS ---
Subjective Subjective: Interval history: Patient was seen and examined this morning, says shortness of breath has markedly improved, supplemental oxygen requirement has gone significantly down, Covid PCR is negative Medications: Reviewed: Yes Vitals/I&O/Wt Last Vital Signs Temp 97.6 F 09/13/21 16:00 Pulse 69 09/13/21 16:09 Resp 16 09/13/21 16:09 BP 168/71 09/13/21 16:50 Pulse Ox 92 09/13/21 16:09 09/13/21 09/13/21 09/13/21 06:59 14:59 22:59 Intake Total 290 / 2050 1220 / 1220 Output Total 1250 / 1950 Balance -960 / 100 1220 / 1220 Physical Exam Const: COMMON NORMALS: patient oriented x3 HENMT: COMMON NORMALS: normocephalic and atraumatic HEAD & SCALP: normocephalic and atraumatic Resp: COMMON NORMALS: clear to auscultation bilaterally EFFORT & INSPECTION: Yes symmetric chest movement AUSCULTATION: clear to auscultation bilaterally Cardio: COMMON NORMALS: regular rate, regular rhythm, S1 normal heart sound present, S2 normal heart sound present, No gallops present (Cardio), No murmurs present (Cardio), No rub (Cardio) and Peripheral pulses 2+ throughout RATE: regular rate RHYTHM: regular rhythm HEART SOUNDS: S1 normal heart sound present and S2 normal heart sound present PERIPHERAL PULSES: Peripheral pulses 2+ throughout GI: COMMON NORMALS: Normal to inspection, nondistended, normoactive bowel sounds present, Soft to palpation, non-tender, No hepatosplenomegaly present and no masses AUSCULTATION: Yes normoactive bowel sounds PALPATION: Yes Soft to palpation and Yes No hepatosplenomegaly present RECTAL EXAM: deferred Extremity: COMMON NORMALS: no clubbing, cyanosis or edema and no pedal edema Neuro: COMMON NORMALS: patient oriented x3 Data : 09/13/21 02:44 09/13/21 02:44 Micro: Microbiology 09/11/21 20:35 Gram Stain - Final Sputum - Expectorated Sputum Sputum Culture - Preliminary A&P Assessment and plan (1) Pneumonia: Pneumonia -With hypoxia -Covid PUI -Blood cultures, sputum cultures, urine bacterial antigens -BNP 55, no significant delta troponin, EKG normal sinus rhythm -Continue Covid isolation, Covid PUI, Covid PCR pending -Continue vancomycin, cefepime, azithromycin -Decadron 6 mg IV push once daily -DuoNeb, budesonide -Vitamin C, vitamin D, zinc Hypertension, clonidine, Norvasc - Status: Acute (2) Hypoxia: Status: Acute Attestations Medical Necessity Statement*: Patient is to be in hospital for management of pneumonia. Coding Level of Care Code Acute Dental Practice Manager for [facility] Diagnoses Pneumonia J18.9 Hypoxia R09.02
--- NOTE | 2021-09-13 19:10 | PC.NURSE ---
Report to Lilian ALFRED at this time.
[2021-09-13] MEDS: vancomycin 1,500 MG/300 ML PIGGYBACK 200 MG IV (20:45)
[2021-09-14] VITALS (10 sets, daily range): BP systolic 161–165; BP diastolic 69–76; PULSE 51–64; RESP 16–20; TEMP 36.3–36.4; O2SAT 85–100
[2021-09-14] MEDS: cloNIDine 0.1 mg Tablet PO (05:28)
[2021-09-14] MEDS: cefepime 2,000 MG in sodium chloride 0.9% (plus) 50 ML 100 MG IV (05:28)
[2021-09-14 05:56] LABS: Basophils % 0.1 %; Eosinophils % 0.2 %; Hematocrit 37.3 % (37.0-47.0); Lymphocytes # 2.5 10^3/uL (0.8-4.8); Lymphocytes % 24.7 %; Mean Corpuscular HGB Conc 32.2 g/dL (30.0-36.0); Mean Corpuscular Hemoglobin 27.6 pg (28.0-34.0); Mean Corpuscular Volume 85.7 fl (81-99); Mean Platelet Volume 9.4 fL (7.4-10.4); Monocytes # 0.6 10^3/uL (0.2-0.9); Monocytes % 6.3 %; Neutrophils # 6.82 10^3/uL (1.8-7.7); Neutrophils % 68.2 %; Nucleated Red Blood Cells % 0 %; Platelet Count 322 10^3/cmm (130-400); Red Blood Count 4.35 10^6/uL (4.1-5.3); Red Cell Distribution Width 13.7 % (12.1-15.1)
[2021-09-14 06:09] LABS: Alanine Aminotransferase 85 U/L (0-33); Albumin Level 3.8 g/dL (3.5-5.2); Alkaline Phosphatase 98 IU/L (35-105); Anion Gap 15.3 (5-19); Aspartate Amino Transferase 75 U/L (0-32); Blood Urea Nitrogen 18 mg/dL (8-23); Calcium 8.7 mg/dL (8.5-10.5); Carbon Dioxide 26 mmol/L (22-29); Chloride 99 mmol/L (98-107); Creatinine Clr Calc Pharmacy 91.8751; Glomerular Filtration Rate 123.4 mL/min (90-130); Glucose 177 mg/dL (65-115); Osmolality Calculated 288 mOsm/kg (285-295); Potassium 4.3 mmol/L (3.5-5.1); Sodium 136 mmol/L (136-145); Total Bilirubin 0.3 mg/dL (0.15-1.2); Total Protein 6.8 g/dL (6.6-8.7)
[2021-09-14 06:16] LABS: Magnesium 1.8 mg/dL (1.7-2.3); Phosphorus 3.7 mg/dL (2.5-4.5)
[2021-09-14 07:28] LABS: Slide Review Slide Review Perform
[2021-09-14] MEDS: ipratropium-albuterol 3 mL Neb INHALATION ×2 (07:47→11:47)
[2021-09-14] MEDS: budesonide 0.5 mg/2 mL Neb INHALATION (08:00)
[2021-09-14] MEDS: pantoprazole DR 40 mg Tablet PO (08:35)
[2021-09-14] MEDS: citalopram 20 mg Tablet 40 MG PO (08:35)
[2021-09-14] MEDS: hydroCHLOROthiazide 25 mg Tablet PO (08:35)
[2021-09-14] MEDS: folic acid 1 mg Tablet PO (08:35)
[2021-09-14] MEDS: losartan 50 mg Tablet 100 MG PO (08:35)
[2021-09-14] MEDS: zinc gluconate 50 mg Tablet PO (08:35)
[2021-09-14] MEDS: azithromycin 500 MG in sodium chloride 0.9% 250 ML 250 MG IV (08:36)
[2021-09-14] MEDS: amlodipine 10 mg Tablet PO (08:36)
[2021-09-14] MEDS: aspirin 81 mg Chew Tablet PO (08:36)
[2021-09-14] MEDS: cholecalciferol (vitamin D3) 1,000 unit Tablet 1000 UNIT PO (08:36)
[2021-09-14] MEDS: vancomycin 1,500 MG/300 ML PIGGYBACK 200 MG IV (10:21)
--- NOTE | 2021-09-14 10:42 | PM.DCS ---
Discharge Providers Date of Admission: 09/11/21 12:17 Date of Discharge: September 14, 2021 Attending Provider at Admission: Andrea Edwards MD Attending Provider at Discharge: Alexandru Mckeon MD Primary Care Provider: Elle Robert Diagnoses at Discharge Discharge Diagnosis (1) Pneumonia: Status: Acute (2) Hypoxia: Status: Acute Reason for Visit Reason for Visit: SOB; taken new atibiotics but is worse Hospital Course Hospital Course Aguilar is a 65 year old female with a past medical history of hypertension, prediabetes, who presents [facility] due to cough, shortness of breath, fatigue, malaise, for the last week. Further work-up revealed pneumonia. CTA chest was done: Which ruled out PE, showed Patchy bilateral airspace infiltrates. Blood cultures were negative, Bacterial antigen panel was negative. Covid PCR was negative, patient was kept on broad-spectrum antibiotics, initially she was requiring 4 to 5 L supplemental oxygen, at the time of discharge she qualified for 2 L home oxygen, secondary to pneumonia, she was afebrile, hemodynamically stable, she was discharged on additional 7 days of levofloxacin. Patient responded well to medical management and is being discharged stable condition to home, she will continue to follow-up with her primary care physician as an outpatient. Physical Exam Const: COMMON NORMALS: patient oriented x3 HENMT: COMMON NORMALS: normocephalic and atraumatic HEAD & SCALP: normocephalic and atraumatic Resp: COMMON NORMALS: clear to auscultation bilaterally EFFORT & INSPECTION: Yes symmetric chest movement AUSCULTATION: clear to auscultation bilaterally Cardio: COMMON NORMALS: regular rate, regular rhythm, S1 normal heart sound present, S2 normal heart sound present, No gallops present (Cardio), No murmurs present (Cardio), No rub (Cardio) and Peripheral pulses 2+ throughout RATE: regular rate RHYTHM: regular rhythm HEART SOUNDS: S1 normal heart sound present and S2 normal heart sound present PERIPHERAL PULSES: Peripheral pulses 2+ throughout GI: COMMON NORMALS: Normal to inspection, nondistended, normoactive bowel sounds present, Soft to palpation, non-tender, No hepatosplenomegaly present and no masses AUSCULTATION: Yes normoactive bowel sounds PALPATION: Yes Soft to palpation and Yes No hepatosplenomegaly present RECTAL EXAM: deferred Extremity: COMMON NORMALS: no clubbing, cyanosis or edema and no pedal edema Neuro: COMMON NORMALS: patient oriented x3 Discharge Data Data Completed and Pending: Completed Studies During Hospitalization Category Date Time Status CT angio chest PE protcl [id number] Urge nt Cat Scan 09/11/21 13:12 Completed XR chest 1V kathy ble [id number] Stat Exams 09/11/21 07:17 Completed Pending at discharge Category Date Time Status Blood Culture Sta t Lab 09/11/21 09:00 Results Complete Blood Co unt w/Auto AM LABS Lab 09/15/21 04:00 Ordered Comprehensive Met abolic Panel AM LA BS Lab 09/15/21 04:00 Ordered Sputum Culture an d Gram Stain Stat Lab 09/11/21 20:35 Results Labs from last 24 hours 09/14/21 09/14/21 09/14/21 05:12 05:12 05:12 WBC 10.0 RBC 4.35 Hgb 12.0 Hct 37.3 MCV 85.7 MCH 27.6 L MCHC 32.2 RDW 13.7 Plt Count 322 MPV 9.4 Neut % (Auto) 68.2 Lymph % (Auto) 24.7 Campbell % (Auto) 6.3 Eos % (Auto) 0.2 Baso % (Auto) 0.1 Neut # (Auto) 6.82 Lymph # (Auto) 2.5 Campbell # (Auto) 0.6 Eos # (Auto) 0.0 Baso # (Auto) 0.0 Nucleated RBC % (a uto) 0 Nucleated RBCs # 0.0 Sodium 136 Potassium 4.3 Chloride 99 Carbon Dioxide 26 Anion Gap 15.3 BUN 18 Creatinine 0.5 GFR Calculation 123.4 Glucose 177 H Calculated Osmolal ity 288 Calcium 8.7 Phosphorus 3.7 Magnesium 1.8 Total Bilirubin 0.3 AST 75 H ALT 85 H Alkaline Phosphata se 98 Total Protein 6.8 Albumin 3.8 Globulin 3.0 Vitals: Last Vital Signs Temp 97.6 F 09/14/21 08:00 Pulse 55 L 09/14/21 08:00 Resp 20 H 09/14/21 08:00 BP 165/72 09/14/21 08:35 Pulse Ox 100 09/14/21 08:00 Discharge Plan Discharge Patient Disposition: Home Condition: Stable Prescriptions: New levofloxacin 500 mg tablet 500 mg PO DAILY 7 Days Qty: 7 RF: 0 Continued aspirin 81 mg Tablet,Chewable 81 mg PO DAILY RF: 0 citalopram 40 mg tablet 40 mg PO DAILY RF: 0 losartan-hydrochlorothiazide 100-25 mg tablet 1 tab PO DAILY RF: 0 amlodipine 10 mg tablet 10 mg PO DAILY RF: 0 Probiotic 20 billion cell Capsule 20,000 mmu cells PO DAILY RF: 0 Beet Pills 1 tab PO DAILY RF: 0 Discontinued azithromycin 250 mg tablet See Rx Instructions .ROUTE .COMPLEX RF: 0 levofloxacin 500 mg tablet 500 mg PO DAILY RF: 0 Discharge Orders: Discharge Order (Routine); Ordered 09/14/21 Ordered By: Alexandru Mckeon Other Ambulatory Orders: DME: Oxygen (Order) Location: None Selected Ordered By: Alexandru Mckeon Referrals: Elle Robert [Primary Care Provider] - 09/20/21 11:00 am Discharge Diet: Regular Discharge Activity: Resume usual activity Patient Instructions: Levofloxacin (By mouth), Hypoxia (GEN), Pneumonia (GEN), Opioid Safety, Pneumonia Stoplight Discharge Attestations Time Spent in Discharge Care*: less than 30 min Specific Discharge Activities: educating patient, educating and/or supporting family/caregiver, discussing with pcp/other providers, discussing with caseworker protective services/social workers/dc planners, documenting/other paperwork and evaluating patient/reviewing data Status at Discharge: Cognitive status at discharge: cognitively intact, Behavioral status at discharge: cooperative, Functional status at discharge: independent ambulation Overall status at discharge: patient is back to baseline Quality Metrics Clinical Quality Measures During this hospital stay, did patient experience: None Coding Level of Care Code Acute Chg DC note Diagnoses Pneumonia J18.9 Hypoxia R09.02
--- NOTE | 2021-09-14 11:00 | PC.CHAP ---
Pastoral Care Encounter/Spiritual Assessment Type of Contact [] Declined cable tender visit [] Patient/Family/Request visit [] Outpatient visit [] Follow-up visit [] Physician referral [] Code/Alert [x] Routine visit [] Staff referral [] Actively dying [] Patient sleeping [] Family support [] [] Out of room [] Palliative care [] [] Receiving care in room [] Pre-surgical visit [] Trauma [] Long length of stay [] ICU visit [] Other: Relational/Emotional Strength [x] Patient feels connected with others/family/visitors/staff [] Distress [] Loneliness/isolation [] Abandonment Spirituality of Patient [x] Person of Amanda [] Attends Anglican of their Amanda [x] Believes in Prayer [] Reads Bible or Tenriism materials [] There are Spiritual issues to be addressed It Infrastructure Manager Interventions [x] Prayer [x] Active listening [x] Non-anxious presence [x] Spiritual/emotional support [] Crisis/trauma care [] Spiritual counseling [] Bereavement support [] Provided bereavement packet [] Provided Bible/devotional materials [] Provided toy/stuffed animal, coloring book to patient or family member [] Provided Communion [] Anointing/[place] [] Salvation [x] Completed spiritual assessment [] Other: Impact on Illness or Injury [] Angry [] Fearful [] Anxious [] Often cries [] Exhaustion [] Unable to work [] Unable to attend anabaptist [] Unable to walk/stand [] Unable to read [] Unable to drive [] Unable to eat/drink [] Unable to sleep [] Unable to be with family [] Patient intubated [] Other: Summary Pt sitting on side of bed and in good spirits. Stated she is being released sometime today. She became ill with strep throat which turned into pneumonia. Thankful she has improved. She is a person of amanda and believes in prayer. She told cable tender of her who 7 years ago of cancer. She has a large family with many grandchildren and great grandchildren. She has a boyfriend, a man she has known most of her life and both families know one another. 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 Time spent with patient 20m
--- NOTE | 2021-09-14 11:03 | PC.NURSE ---
violet vancomycin for HEliel Pineda RN
--- NOTE | 2021-09-14 14:14 | PC.SOCIAL ---
IMM UPDATED IMM dated and initialed and copy given to patient
--- NOTE | 2021-09-14 14:18 | PC.NURSE ---
DISCHARGE PAPERWORK GONE OVER WITH PT. ALL QUESTIONS ANSWERED. WE HAVE JUST BEEN WAITING ON OXYGEN TO GET HERE. OXYGEN IS NOW HERE. PT IS BEING WHEELED OUT BY AN AID.
== END 2021-09-14 14:20 | disposition home or self-care (01) | DRG 195 ==
LOC: ER 09:12 → MEDSURG 16:25
PROVIDERS: Admitting Provider Family Medicine; Emergency Provider Family Medicine; PCP Internal Medicine; Visit Provider Internal Medicine
DX: J18.9 Pneumonia, unspecified organism (principal); E11.9 Type 2 diabetes mellitus without complications; Z79.84 Long term (current) use of oral hypoglycemic drugs; I10 Essential (primary) hypertension; Z86.16 Personal history of COVID-19; Z79.82 Long term (current) use of aspirin
CPT/HCPCS: 36415; 71045; 71275; 80053; 80202; 83036; 83605; 83735; 83880; 84100; 84145; 84443; 84484; 85025; 85378; 86140; 86403; 87040; 87070; 87205; 87426; 87635; 87804; 93005; 94640; 94664; 96365; 96366; 96367; 96372; 99285; J0456; J0692; J1100; J1650; J1956; J2543; J3370; J7050; J7626; Q9967